=== PATIENT | female | born 1960 | race Caucasian/White ===

== ENCOUNTER 2017-12-20 18:29 | Emergency (ER) | payer MEDICAID ==
[~2017-12-20] VITALS: Ht 167.6 cm; Wt 89.5 kg
[~2017-12-20 18:29] MED LIST: BAC10T PO; COMIN IH; DEXL30CA3 PO; EFF25T PO; FURO-150 PO; LORA10TA2 PO; MELO-82 PO; METF500T4 PO; MONT10TA21 PO; MOT200T PO; TIOT18CA7 IH; TRAM50TA2 PO
[2017-12-20] MEDS ORDERED: ondansetron/PF 4mg/2ml inj IV ONE (18:50)
[2017-12-20] MEDS ORDERED: morphine 2 MG/ML inj. syringe IV ONE (18:50)
[2017-12-20] MEDS ORDERED: morphine 4 MG/ML inj SYRINge IV ONE ×2 (18:55→19:25)
[2017-12-20 19:13] LABS: BASOPHILS % (AUTO) 0.3 % (0-1); EOSINOPHILS # (AUTO) 0.2 X10'3 (0-0.9); EOSINOPHILS % (AUTO) 2.2 % (0-6); HEMATOCRIT 35.2 % (35.0-45.0); HEMOGLOBIN 11.6 g/dl (12.0-16.0); LYMPHOCYTES # (AUTO) 1.1 X10'3 (1.1-4.8); LYMPHOCYTES % (AUTO) 14.5 % (21-51); MEAN CORPUSCULAR HEMOGLOBIN 28.3 PG (27.0-31.0); MEAN CORPUSCULAR HGB CONC 33.1 % (33.0-36.5); MEAN CORPUSCULAR VOLUME 85.6 FL (78-98); MEAN PLATELET VOLUME 7.7 FL (7.4-10.4); MONOCYTES # (AUTO) 0.4 X10'3 (0-0.9); MONOCYTES % (AUTO) 5.8 % (2-12); NEUTROPHILS # (AUTO) 5.7 X10'3 (1.8-7.7); NEUTROPHILS % (AUTO) 77.2 % (42-75); PLATELET COUNT 307 X10'3 (140-440); RED BLOOD COUNT 4.11 X10'6 (4.20-5.60); WHITE BLOOD COUNT 7.4 X10'3 (4.5-11.0)
[2017-12-20 19:24] LABS: INR 0.9 INR; PARTIAL THROMBOPLASTIN TIME 29 SECONDS (22-32); PROTHROMBIN TIME 9.8 SECONDS (9.0-12.0)
[2017-12-20 19:29] LABS: ALANINE AMINOTRANSFERASE 25 U/L (12-78); ALBUMIN 3.7 G/DL (3.4-5.0); ALKALINE PHOSPHATASE 118 IU/L (46-116); ANION GAP 10 (8-16); ASPARTATE AMINO TRANSFERASE 17 U/L (10-37); BILIRUBIN,TOTAL 0.3 MG/DL (0.1-1.0); BLOOD UREA NITROGEN 13 MG/DL (7-18); BUN/CREATININE RATIO 14.9 (6.6-38.0); CALCIUM 8.8 MG/DL (8.5-10.1); CHLORIDE 106 MMOL/L (99-107); CREATININE 0.87 MG/DL (0.40-0.90); GLUCOSE 153 MG/DL (70-104); POTASSIUM 4.2 MMOL/L (3.5-5.1); SODIUM 144 MMOL/L (135-145); TOTAL PROTEIN 7.3 G/DL (6.4-8.2); eGFR 67 ML/MIN
[2017-12-20] MEDS ORDERED: METF500T PO (20:45)
[2017-12-20] MEDS ORDERED: IBUP-1984 PO (20:45)
[2017-12-20 21:07] VITALS: BP 110/65
== END 2017-12-20 21:09 | disposition home or self-care (01) ==
LOC: MERGE 18:30 → ER 18:30
DX: M25.551 Pain in right hip (principal); Z88.8 Allergy status to other drugs, medicaments and biological substances; Z79.84 Long term (current) use of oral hypoglycemic drugs; Z79.899 Other long term (current) drug therapy
CPT/HCPCS: 36415; 71045; 72170; 73502; 73700; 80053; 85025; 85610; 85730; 96374; 96375; 99285; J2270; J2405

== ENCOUNTER 2019-02-05 11:51 | Emergency (ER) | payer MEDICAID ==
[~2019-02-05] VITALS: Ht 165.1 cm; Wt 92.3 kg
[~2019-02-05 11:51] MED LIST changes: +IBUP-1984 PO; +METF-436 PO; +METF500T PO; -METF500T4 PO
[2019-02-05 11:57] VITALS: BP 120/68
[2019-02-05] MEDS ORDERED: NAPR-56 PO (12:35)
[2019-02-05] MEDS ORDERED: TRAM50TA2 PO (12:35)
== END 2019-02-05 13:28 | disposition home or self-care (01) ==
LOC: ER 11:52
DX: S62.613A Displaced fracture of proximal phalanx of left middle finger, initial encounter for closed fracture (principal); Z88.8 Allergy status to other drugs, medicaments and biological substances; Z88.1 Allergy status to other antibiotic agents; Z79.84 Long term (current) use of oral hypoglycemic drugs; Z79.899 Other long term (current) drug therapy; W18.39XA Other fall on same level, initial encounter; Y93.89 Activity, other specified; Y92.89 Other specified places as the place of occurrence of the external cause; Y99.8 Other external cause status
CPT/HCPCS: 29130; 73130; 99283

== ENCOUNTER 2021-08-28 16:26 | Inpatient (IN) | payer MEDICAID ==
[~2021-08-28] VITALS: Ht 167.6 cm; Wt 101.8 kg
[~2021-08-28 16:26] MED LIST changes: +ARIP5TAB14 PO; -BAC10T PO; -DEXL30CA3 PO; -EFF25T PO; -FURO-150 PO; +GABA-530 PO; +GLIP10TA11 PO; +HYDR50TA65 PO; -LORA10TA2 PO; -MELO-82 PO; -METF-436 PO; +METF-900 PO; -METF500T PO; -MONT10TA21 PO; -MOT200T PO; +OXYB5TAB16 PO; +SERT50TA PO; -TIOT18CA7 IH; -TRAM50TA2 PO; +UMEC1DIS INH
[2021-08-28] MEDS ORDERED: heparin 10,000 units/1 ML INJ IV ONE ×2 (19:15→19:21)
--- NOTE | 2021-08-28 19:45 | NUR ---
PT ROOMED. ASSUMED CARE OF PT. IV IS BEING PLACED. PT ALSO INCONTINENT OF STOOL.
[2021-08-28 20:01] LABS: BASOPHILS % (AUTO) 0.6 % (0-1); EOSINOPHILS # (AUTO) 0.1 X10'3 (0-0.9); EOSINOPHILS % (AUTO) 1.1 % (0-6); HEMATOCRIT 32.8 % (35.0-45.0); HEMOGLOBIN 11.1 g/dl (12.0-16.0); LYMPHOCYTES # (AUTO) 1.2 X10'3 (1.1-4.8); LYMPHOCYTES % (AUTO) 16.9 % (21-51); MEAN CORPUSCULAR HEMOGLOBIN 27.2 PG (27.0-31.0); MEAN CORPUSCULAR HGB CONC 33.8 g/dL (33.0-36.5); MEAN CORPUSCULAR VOLUME 80.3 FL (78-98); MEAN PLATELET VOLUME 7.6 FL (7.4-10.4); MONOCYTES # (AUTO) 0.4 X10'3 (0-0.9); NEUTROPHILS # (AUTO) 5.4 X10'3 (1.8-7.7); NEUTROPHILS % (AUTO) 75.4 % (42-75); PLATELET COUNT 259 X10'3 (140-440); RED BLOOD COUNT 4.09 X10'6 (4.20-5.60); WHITE BLOOD COUNT 7.2 X10'3 (4.5-11.0)
[2021-08-28 20:08] LABS: ALBUMIN 3.3 G/DL (3.4-5.0); ANION GAP 6 (8-16); BLOOD UREA NITROGEN 16 MG/DL (7-18); BUN/CREATININE RATIO 15.7 (6.6-38.0); CALCIUM 8.6 MG/DL (8.5-10.1); CHLORIDE 106 MMOL/L (99-107); CREATININE 1.02 MG/DL (0.40-0.90); GLUCOSE 126 MG/DL (70-104); POTASSIUM 4.2 MMOL/L (3.5-5.1); SODIUM 143 MMOL/L (135-145); TOTAL CARBON DIOXIDE 31.1 MMOL/L (24-32); eGFR 55 ML/MIN
[2021-08-28 20:10] LABS: PARTIAL THROMBOPLASTIN TIME 25 SECONDS (22-32)
[2021-08-28] MEDS: heparin 25,000 UNIT/250ml bag 250 ML IV SCH (20:29)
[2021-08-28] MEDS ORDERED: iohexol 300mg/ml 100ml inj. ONE (20:33)
--- NOTE | 2021-08-28 20:37 | NUR ---
PT TO CT
[2021-08-28] MEDS: MESSAGE TO NURSING PO SCH (20:54)
[2021-08-28] MEDS ORDERED: temazepam 15mg capsule PO PRN (21:00)
[2021-08-28] MEDS ORDERED: ondansetron/PF 4mg/2ml inj IV PRN (21:45)
[2021-08-28] MEDS ORDERED: HYDROcodone/acetaminophen 5mg/325mg tablet PO PRN (21:45)
[2021-08-28] MEDS ORDERED: morphine 2 MG/ML inj. syringe IV PRN ×2 (21:45)
[2021-08-28] MEDS ORDERED: acetaminophen 325mg tablet PO PRN ×2 (21:45)
[2021-08-28] MEDS ORDERED: acetaminophen 650mg rectal suppository RC PRN (21:45)
[2021-08-28] MEDS ORDERED: ondansetron 4mg rapidly disintigrating tab PO PRN (21:45)
[2021-08-28] MEDS ORDERED: diphenhydrAMINE 25mg capsule PO PRN (21:45)
[2021-08-28] MEDS ORDERED: HYDROmorphone inj. 0.5 MG/0.5 ML DISP.SYRIN IV PRN (21:45)
[2021-08-28] MEDS ORDERED: diphenhydrAMINE 50 mg/ml inj IV PRN (21:45)
[2021-08-28] MEDS ORDERED: bisacodyl 10mg suppository rectal RC PRN (21:45)
[2021-08-28] MEDS ORDERED: magnesium hydroxide 30ml (MOM) UD suspension PO PRN (21:45)
[2021-08-28] MEDS ORDERED: mag hydrox/Alum hydrox/simeth 30ml oral suspension PO PRN (21:45)
[2021-08-28] MEDS ORDERED: HYDROcodone/acetaminophen 10/325mg tab PO PRN (21:45)
[2021-08-28] MEDS ORDERED: dextrose 50%-water 50ml dispensing syringe IV PRN ×2 (21:50)
[2021-08-28] MEDS ORDERED: insulin Lispro (HumaLOG) vial - multi-dose SQ SCH (21:50)
[2021-08-28] MEDS ORDERED: MESSAGE TO PHARMACY PO ONE (21:50)
[2021-08-28] MEDS ORDERED: glucagon, human recombinant 1mg kit SUBCUT PRN (21:50)
[2021-08-28] MEDS ORDERED: dextrose ORAL solution 15 GM/59 ML bottle PO PRN ×2 (21:50)
[2021-08-28] MEDS: normal saline 1000ml 1,000 ML IV SCH (21:55)
[2021-08-28 22:24] LABS: HEMOGLOBIN A1C 7.8 % (4.5-6.2)
[2021-08-28 22:30] LABS: CREATINE KINASE 32 U/L (26-192); ETHANOL < 0.010 GM/DL (0.0-0.010); LIPASE < 50 U/L (73-393); PHOSPHORUS 3.4 MG/DL (2.3-4.5)
[2021-08-28] MEDS ORDERED: METF-436 PO (23:01)
[2021-08-29 02:44] LABS: BASOPHILS % (AUTO) 0.7 % (0-1); EOSINOPHILS # (AUTO) 0.1 X10'3 (0-0.9); EOSINOPHILS % (AUTO) 2.1 % (0-6); HEMATOCRIT 30.6 % (35.0-45.0); LYMPHOCYTES # (AUTO) 1.4 X10'3 (1.1-4.8); LYMPHOCYTES % (AUTO) 24.3 % (21-51); MEAN CORPUSCULAR HEMOGLOBIN 26.4 PG (27.0-31.0); MEAN CORPUSCULAR HGB CONC 32.8 g/dL (33.0-36.5); MEAN CORPUSCULAR VOLUME 80.6 FL (78-98); MEAN PLATELET VOLUME 7.7 FL (7.4-10.4); MONOCYTES # (AUTO) 0.4 X10'3 (0-0.9); MONOCYTES % (AUTO) 6.8 % (2-12); NEUTROPHILS # (AUTO) 3.8 X10'3 (1.8-7.7); NEUTROPHILS % (AUTO) 66.1 % (42-75); PLATELET COUNT 227 X10'3 (140-440); RED CELL DISTRIBUTION WIDTH 17.2 % (11.5-14.5); WHITE BLOOD COUNT 5.8 X10'3 (4.5-11.0)
[2021-08-29 02:57] LABS: CLARITY,URINE CLOUDY (Clear); COLOR,URINE YELLOW (Yellow); GLUCOSE, URINE NEGATIVE (Neg); KETONES,URINE NEGATIVE (Neg); PROTEIN,URINE NEGATIVE (Neg); UA COLLECTION TYPE NON-SPECIFIED
[2021-08-29 02:58] LABS: LEUKOCYTE ESTERASE ,URINE TRACE (Neg); NITRITES, URINE POSITIVE (Neg); OCCULT BLOOD,URINE NEGATIVE (Neg); UROBILINOGEN,URINE 0.2 E.U/dL (0.2-1.0)
[2021-08-29 03:01] LABS: ALANINE AMINOTRANSFERASE 24 U/L (12-78); ALBUMIN 2.9 G/DL (3.4-5.0); ALBUMIN/GLOBULIN RATIO 0.8 (1.1-1.5); ALKALINE PHOSPHATASE 85 IU/L (46-116); ANION GAP 7 (8-16); ASPARTATE AMINO TRANSFERASE 17 U/L (10-37); BILIRUBIN,TOTAL 0.5 MG/DL (0.1-1.0); BLOOD UREA NITROGEN 14 MG/DL (7-18); BUN/CREATININE RATIO 15.9 (6.6-38.0); CHLORIDE 107 MMOL/L (99-107); CHOL/HDL RATIO 3.7 (0.00-4.99); CHOLESTEROL 163 MG/DL (0-200); CREATININE 0.88 MG/DL (0.40-0.90); GLUCOSE 126 MG/DL (70-104); HDL CHOLESTEROL 44 MG/DL (35-60); LDL CHOLESTEROL 108 MG/DL (50-100); POTASSIUM 4.1 MMOL/L (3.5-5.1); SODIUM 142 MMOL/L (135-145); TOTAL CARBON DIOXIDE 27.9 MMOL/L (24-32); TOTAL PROTEIN 6.6 G/DL (6.4-8.2); TRIGLYCERIDES 53 MG/DL (20-135); eGFR 65 ML/MIN
[2021-08-29 03:07] LABS: SQUAMOUS EPITHELIAL CELL,UR MODERATE /LPF (FEW)
[2021-08-29 03:13] LABS: BACTERIA,URINE 4+ /HPF (Neg); RBC,URINE 0-2 /HPF (0-2); YEAST MODERATE /HPF (NEGATIVE)
[2021-08-29 03:16] LABS: URINE AMPHETAMINE SCREEN NEGATIVE (Neg); URINE BARBITUATE SCREEN NEGATIVE (Neg); URINE BENZODIAZEPINES SCREEN NEGATIVE (Neg); URINE CANNABINOID SCREEN NEGATIVE (Neg); URINE COCAINE SCREEN NEGATIVE (Neg); URINE METHADONE SCREEN NEGATIVE (Neg); URINE OPIATE SCREEN NEGATIVE (Neg); URINE PHENCYCLIDINE SCREEN NEGATIVE (Neg)
[2021-08-29] MEDS: docusate sod 100mg capsule PO SCH ×2 (08:00→20:02)
[2021-08-29] MEDS: MESSAGE TO NURSING PO SCH (10:00)
[2021-08-29] MEDS: pantoprazole 40mg Tablet.DR PO SCH (10:21)
[2021-08-29] MEDS: nitrofuran/nitrofuran macrocrysal 100 MG capsule PO SCH ×2 (10:21→20:02)
[2021-08-29] MEDS: normal saline 1000ml 1,000 ML IV SCH ×3 (10:22→22:00)
[2021-08-29] MEDS: heparin 25,000 UNIT/250ml bag 250 ML IV SCH ×2 (11:22→12:44)
--- NOTE | 2021-08-29 12:36 | NUR ---
Patient in room ED 8. I have received report from Rose YUSUF and had the opportunity to ask questions and assume patient care.
[2021-08-29] MEDS: heparin 10,000 units/1 ML INJ IV PRN (12:43)
[2021-08-29 13:00] VITALS: BP 121/63
[2021-08-29] MEDS ORDERED: ipratropium/albuterol 3ml nebule NEB PRN (13:00)
[2021-08-29] MEDS ORDERED: fentaNYL/PF 50MCG/1 ML 2ML syringe ONE ×4 (13:40→16:56)
[2021-08-29] MEDS ORDERED: LIDOcaine 1%/PF 5ML 10 MG/ML VIAL ONE (13:40)
[2021-08-29] MEDS ORDERED: heparin 1,000 UNITS/NS 500ml 500 ML ONE ×2 (13:40→17:03)
[2021-08-29] MEDS ORDERED: iohexol 300mg/ml 100ml inj. ONE (13:40)
[2021-08-29] MEDS ORDERED: midazolam 1 mg/ML 2ml injection ONE ×4 (13:40→16:56)
[2021-08-29] MEDS ORDERED: pneumococcal 23-VAL P-sac vacc 25 mcg/0.5ml vial IMVAC ONE (14:15)
[2021-08-29] MEDS ORDERED: diphenhydrAMINE 50 mg/ml inj ONE (14:28)
[2021-08-29] MEDS ORDERED: ALBUTEROL INHALER 1 PUFF/90 MCG INHALER IH PRN (16:00)
[2021-08-29] MEDS: gabapentin 300mg capsule PO SCH (16:00)
--- NOTE | 2021-08-29 16:33 | NUR ---
DM consult: Pt with T2DM, fairly well controlled with A1c 7.8%. Per EMR pt in IR. Will f/u for DM education once appropriate. Addendum: 08/29/21 at [address] Amended: Links added.
[2021-08-29] MEDS ORDERED: heparin 1,000unit/ml 10ml vial 10 ML ONE (16:51)
[2021-08-29 18:40] LABS: PARTIAL THROMBOPLASTIN TIME > 139 SECONDS (22-32)
--- NOTE | 2021-08-29 18:57 | NUR ---
PAGER ID: [phone] MESSAGE: Oliva [phone] - re: Melissa Jordan. PTT is greater than 139. Protocol is to stop infusion for 2 hours.
--- NOTE | 2021-08-29 19:03 | NUR ---
Received call from the lab that PTT is greater than 139. Protocol is to stop heparin drip for 2 hours and then decrease by 3 units/kg/hr. Heparin drip in currently not infusing. Paged Dr. Hess with no response. Reported to allyn Garrido.
--- NOTE | 2021-08-29 19:05 | NUR ---
Problems reprioritized. Patient report given, questions answered & plan of care reviewed with Radhika YUSUF.
--- NOTE | 2021-08-29 19:55 | NUR ---
I called Dr. Coleman regarding elevated ptt from 1837. the ptt was >139 and heparin has been off since around 1800 per the night nurse who gave me the information. I already ordered a repeat ptt at 2030 and will follow protocol. Dr. Coleman called back and said to follow the heparin protocol.
[2021-08-29] MEDS: sertraline 50mg tablet PO SCH (20:02)
[2021-08-29] MEDS: oxybutynin 5mg tablet PO SCH (20:02)
[2021-08-29] MEDS: insulin glargine (Lantus) pen - multi-dose SQ SCH (21:00)
--- NOTE | 2021-08-29 21:11 | NUR ---
I had paged Dr. Jacinto regarding day shift saying that patient did not need to be on the covid unit since she was covid + about 3 weeks ago. I had called nursing supervisor net making and she said that there was no place to transfer her today. Dr. Jacinto called me back and he said to keep patient on our floor tonight on tele monitor and he would re eval the patient in the am and write transfer orders if she was stable to the surgical unit on Wednesday himself.
[2021-08-29 22:00] VITALS: BP 126/55
[2021-08-30] MEDS: gabapentin 300mg capsule PO SCH ×3 (01:11→15:27)
[2021-08-30] MEDS: normal saline 1000ml 1,000 ML IV SCH ×6 (01:12→20:40)
[2021-08-30] MEDS: heparin 25,000 UNIT/250ml bag 250 ML IV SCH ×2 (02:33→15:38)
[2021-08-30 06:00] VITALS: BP 111/59
--- NOTE | 2021-08-30 06:39 | NUR ---
Problems reprioritized. Patient report given, questions answered & plan of care reviewed with PARAMJIT Henry.
[2021-08-30] MEDS: (Umeclidinium Brm/Vilanterol Tr (Anoro Ellipta 62.5-25 Mcg INH) 1 PUFF) PO SCH (08:00)
[2021-08-30] MEDS ORDERED: aripiprazole 5mg tablet PO SCH ×2 (08:00→09:11)
[2021-08-30] MEDS: hydrOXYzine 25 MG tablet PO SCH (08:28)
[2021-08-30] MEDS: docusate sod 100mg capsule PO SCH ×2 (08:28→20:28)
[2021-08-30] MEDS: oxybutynin 5mg tablet PO SCH ×2 (08:28→20:28)
[2021-08-30] MEDS: pantoprazole 40mg Tablet.DR PO SCH (08:28)
[2021-08-30 08:35] LABS: BASOPHILS % (AUTO) 0.3 % (0-1); EOSINOPHILS # (AUTO) 0.1 X10'3 (0-0.9); EOSINOPHILS % (AUTO) 1.7 % (0-6); HEMATOCRIT 28.7 % (35.0-45.0); HEMOGLOBIN 9.6 g/dl (12.0-16.0); LYMPHOCYTES # (AUTO) 0.9 X10'3 (1.1-4.8); LYMPHOCYTES % (AUTO) 16.7 % (21-51); MEAN CORPUSCULAR HEMOGLOBIN 26.8 PG (27.0-31.0); MEAN CORPUSCULAR HGB CONC 33.3 g/dL (33.0-36.5); MEAN CORPUSCULAR VOLUME 80.6 FL (78-98); MEAN PLATELET VOLUME 8.1 FL (7.4-10.4); MONOCYTES # (AUTO) 0.4 X10'3 (0-0.9); MONOCYTES % (AUTO) 6.5 % (2-12); NEUTROPHILS # (AUTO) 4.2 X10'3 (1.8-7.7); NEUTROPHILS % (AUTO) 74.8 % (42-75); PLATELET COUNT 236 X10'3 (140-440); RED BLOOD COUNT 3.56 X10'6 (4.20-5.60); RED CELL DISTRIBUTION WIDTH 17.3 % (11.5-14.5); WHITE BLOOD COUNT 5.7 X10'3 (4.5-11.0)
[2021-08-30 08:52] LABS: ALANINE AMINOTRANSFERASE 21 U/L (12-78); ALBUMIN 2.8 G/DL (3.4-5.0); ALBUMIN/GLOBULIN RATIO 0.9 (1.1-1.5); ALKALINE PHOSPHATASE 80 IU/L (46-116); ANION GAP 3 (8-16); ASPARTATE AMINO TRANSFERASE 20 U/L (10-37); BILIRUBIN,TOTAL 0.4 MG/DL (0.1-1.0); BLOOD UREA NITROGEN 10 MG/DL (7-18); BUN/CREATININE RATIO 10.9 (6.6-38.0); CALCIUM 7.9 MG/DL (8.5-10.1); CHLORIDE 110 MMOL/L (99-107); CREATININE 0.92 MG/DL (0.40-0.90); GLUCOSE 153 MG/DL (70-104); POTASSIUM 4.1 MMOL/L (3.5-5.1); SODIUM 143 MMOL/L (135-145); TOTAL CARBON DIOXIDE 29.6 MMOL/L (24-32); eGFR 62 ML/MIN
[2021-08-30] MEDS: CefTRIAXone/D5W-Rocephin 1gm 50 ML IV SCH (09:36)
[2021-08-30] MEDS: nitrofuran/nitrofuran macrocrysal 100 MG capsule PO SCH ×2 (09:36→20:39)
[2021-08-30] MEDS: MESSAGE TO NURSING PO SCH (10:00)
[2021-08-30 14:00] VITALS: BP 121/66
--- NOTE | 2021-08-30 16:00 | NUR ---
IR RN removed Flowstasis device/suture from left posterior knee per IR MD direction. Site is clean dry and intact. No signs of bleeding or hematoma. Primary RN aware.
--- NOTE | 2021-08-30 17:20 | NUR ---
PAGED DR QUINTANA RE: PAGER ID: [phone] MESSAGE: SHALINI SEGUNDO. SLIGHT TEMP 100.7, TYLENOL GIVEN. PT MOVING TO [facility] RM [id number]. NESHA [phone]
--- NOTE | 2021-08-30 17:46 | NUR ---
Problems reprioritized. Patient report given, questions answered & plan of care reviewed with YESSENIA YUSUF.
[2021-08-30 18:00] VITALS: BP 112/56
--- NOTE | 2021-08-30 19:03 | NUR ---
Problems reprioritized. Patient report given, questions answered & plan of care reviewed with Dahiana YUSUF.
[2021-08-30] MEDS: lactobacillus rhamnosus 10,000 MMU CELLS/CAPSULE PO SCH (20:28)
[2021-08-30] MEDS: sertraline 50mg tablet PO SCH (20:29)
[2021-08-30] MEDS: insulin glargine (Lantus) pen - multi-dose SQ SCH (20:48)
[2021-08-30 22:00] VITALS: BP 97/54
[2021-08-31] MEDS: heparin 25,000 UNIT/250ml bag 250 ML IV SCH ×2 (01:00→08:28)
[2021-08-31] MEDS: normal saline 1000ml 1,000 ML IV SCH ×4 (01:28→09:45)
[2021-08-31] MEDS: heparin 10,000 units/1 ML INJ IV PRN (01:34)
[2021-08-31 02:00] VITALS: BP 119/53
[2021-08-31 06:00] VITALS: BP 104/58
--- NOTE | 2021-08-31 06:32 | NUR ---
Problems reprioritized. Patient report given, questions answered & plan of care reviewed with Janelle YUSUF.
--- NOTE | 2021-08-31 06:34 | NUR ---
Patient in room PCU 3028. I have received report from RAUL YUSUF and had the opportunity to ask questions and assume patient care.
[2021-08-31] MEDS: CefTRIAXone/D5W-Rocephin 1gm 50 ML IV SCH (07:30)
[2021-08-31] MEDS: lactobacillus rhamnosus 10,000 MMU CELLS/CAPSULE PO SCH (07:30)
[2021-08-31] MEDS: gabapentin 300mg capsule PO SCH ×2 (07:30)
[2021-08-31] MEDS: docusate sod 100mg capsule PO SCH (07:30)
[2021-08-31] MEDS: oxybutynin 5mg tablet PO SCH (07:31)
[2021-08-31] MEDS: pantoprazole 40mg Tablet.DR PO SCH (07:31)
[2021-08-31] MEDS: hydrOXYzine 25 MG tablet PO SCH (07:31)
[2021-08-31] MEDS: nitrofuran/nitrofuran macrocrysal 100 MG capsule PO SCH (07:31)
[2021-08-31] MEDS: (Umeclidinium Brm/Vilanterol Tr (Anoro Ellipta 62.5-25 Mcg INH) 1 PUFF) PO SCH (07:32)
[2021-08-31 07:56] LABS: BASOPHILS % (AUTO) 0.3 % (0-1); EOSINOPHILS # (AUTO) 0.1 X10'3 (0-0.9); EOSINOPHILS % (AUTO) 2.8 % (0-6); HEMATOCRIT 26.4 % (35.0-45.0); HEMOGLOBIN 8.8 g/dl (12.0-16.0); LYMPHOCYTES # (AUTO) 0.8 X10'3 (1.1-4.8); LYMPHOCYTES % (AUTO) 15.4 % (21-51); MEAN CORPUSCULAR HEMOGLOBIN 26.9 PG (27.0-31.0); MEAN CORPUSCULAR HGB CONC 33.3 g/dL (33.0-36.5); MEAN CORPUSCULAR VOLUME 80.8 FL (78-98); MONOCYTES # (AUTO) 0.4 X10'3 (0-0.9); MONOCYTES % (AUTO) 7.6 % (2-12); NEUTROPHILS # (AUTO) 3.8 X10'3 (1.8-7.7); NEUTROPHILS % (AUTO) 73.9 % (42-75); PLATELET COUNT 220 X10'3 (140-440); RED BLOOD COUNT 3.27 X10'6 (4.20-5.60); RED CELL DISTRIBUTION WIDTH 17.5 % (11.5-14.5); WHITE BLOOD COUNT 5.2 X10'3 (4.5-11.0)
[2021-08-31 08:04] LABS: ALANINE AMINOTRANSFERASE 17 U/L (12-78); ALBUMIN 2.5 G/DL (3.4-5.0); ALBUMIN/GLOBULIN RATIO 0.8 (1.1-1.5); ANION GAP 7 (8-16); ASPARTATE AMINO TRANSFERASE 20 U/L (10-37); BILIRUBIN,TOTAL 0.3 MG/DL (0.1-1.0); BLOOD UREA NITROGEN 11 MG/DL (7-18); BUN/CREATININE RATIO 13.1 (6.6-38.0); CALCIUM 7.6 MG/DL (8.5-10.1); CHLORIDE 112 MMOL/L (99-107); CREATININE 0.84 MG/DL (0.40-0.90); GLUCOSE 167 MG/DL (70-104); POTASSIUM 3.8 MMOL/L (3.5-5.1); SODIUM 146 MMOL/L (135-145); TOTAL CARBON DIOXIDE 27.4 MMOL/L (24-32); TOTAL PROTEIN 5.6 G/DL (6.4-8.2); eGFR 69 ML/MIN
[2021-08-31 08:05] LABS: ALKALINE PHOSPHATASE 81 IU/L (46-116)
[2021-08-31 11:00] VITALS: BP 130/70
[2021-08-31] MEDS ORDERED: LEVO500T90 PO (11:55)
[2021-08-31] MEDS ORDERED: APIX5TAB3 PO ×2 (11:55)
[2021-08-31] MEDS ORDERED: HYDR-3972 PO (11:55)
[2021-08-31] MEDS ORDERED: ENOX100S3 SQ (12:01)
--- NOTE | 2021-08-31 13:36 | NUR ---
pt was stable for discharge, iv was dc and intact. all discharge info was gone over with pt with no questions, all belongings taken home with pt, pt was wheeled down to lobby in a wheelchair and left in a private vehicle with family.
--- NOTE | 2021-08-31 13:37 | NUR ---
Initial: Pt admitted w/ increased swelling and pain of LLE and underwent thrombectomy, venoplasty and stenting per EMR. Pt currently on CCHO diet eating 100% of meals meeting needs. LBM 08/29 receiving routine colace. Pt declined verbal DM ed but accepted written education w/ RD contact info. No nutrition intervention implemented at this time, will continue to monitor. Recs: 1. Continue CCHO diet as tolerated 2. Bowel care per rx 3. Weekly wts Addendum: 08/31/21 at [address] Amended: Links added.
== END 2021-08-31 13:42 | disposition home or self-care (01) | DRG 169 ==
LOC: ER 16:27 → ED HOLD 21:46 → ORTHO 4S 08-29 13:00 → PCU 3S 08-30 18:02
PROVIDERS: ADMIT Family Medicine; ATTEND Family Medicine
PROC: BW211ZZ Computerized Tomography (CT Scan) of Abdomen and Pelvis using Low Osmolar Contrast (ICD-10-PCS; principal; 2021-08-28)
PROC: 06CD3ZZ Extirpation of Matter from Left Common Iliac Vein, Percutaneous Approach (ICD-10-PCS; 2021-08-29)
PROC: 06CG3ZZ Extirpation of Matter from Left External Iliac Vein, Percutaneous Approach (ICD-10-PCS; 2021-08-29)
PROC: 06CN3ZZ Extirpation of Matter from Left Femoral Vein, Percutaneous Approach (ICD-10-PCS; 2021-08-29)
PROC: 067D3ZZ Dilation of Left Common Iliac Vein, Percutaneous Approach (ICD-10-PCS; 2021-08-29)
PROC: B51C1ZA Fluoroscopy of Left Lower Extremity Veins using Low Osmolar Contrast, Guidance (ICD-10-PCS; 2021-08-29)
DX: I82.422 Acute embolism and thrombosis of left iliac vein (principal); N17.0 Acute kidney failure with tubular necrosis; U07.1 COVID-19; I82.412 Acute embolism and thrombosis of left femoral vein; E11.9 Type 2 diabetes mellitus without complications; J44.9 Chronic obstructive pulmonary disease, unspecified; N39.0 Urinary tract infection, site not specified; I87.1 Compression of vein; F41.9 Anxiety disorder, unspecified; E78.5 Hyperlipidemia, unspecified; F32.A Depression, unspecified; Z79.82 Long term (current) use of aspirin; Z59.00 Homelessness unspecified; Z88.1 Allergy status to other antibiotic agents; Z88.8 Allergy status to other drugs, medicaments and biological substances; Z79.899 Other long term (current) drug therapy
CPT/HCPCS: 36005; 36415; 37187; 37248; 71045; 74177; 75820; 76937; 80048; 80053; 80061; 80305; 80320; 81001; 82550; 82948; 83036; 83690; 83735; 83880; 84100; 84443; 85025; 85347; 85610; 85730; 87077; 87081; 87088; 87186; 87635; 93971; 99152; 99153; 99285; C1725; C1757; C1769; C1876; C1887; C1894; G0378; J0696; J1200; J1644; J1815; J2250; J3010; J7030; Q0177; Q9967

== ENCOUNTER → 2022-01-05 | Emergency (ER) | payer MEDICAID ==
[~2022-01-05] VITALS: Ht 167.6 cm; Wt 100.0 kg
[~2022-01-05] MED LIST changes: +ALBU18HF2 INH; +APIX5TAB3 PO; +ENOX100S3 SQ; +HYDR-3972 PO; -IBUP-1984 PO; +METF-436 PO; -METF-900 PO; +PRED20TA PO; +dexamethasone 4mg tablet PO ONE; +ipratropium/albuterol 3ml nebule NEB ONE
[2022-01-05 20:46] LABS: BASOPHILS % (AUTO) 0.4 % (0-1); EOSINOPHILS # (AUTO) 0.1 X10'3 (0-0.9); EOSINOPHILS % (AUTO) 0.9 % (0-6); HEMATOCRIT 37.6 % (35.0-45.0); HEMOGLOBIN 12.1 g/dl (12.0-16.0); LYMPHOCYTES # (AUTO) 1.2 X10'3 (1.1-4.8); LYMPHOCYTES % (AUTO) 16.9 % (21-51); MEAN CORPUSCULAR HEMOGLOBIN 25.8 PG (27.0-31.0); MEAN CORPUSCULAR HGB CONC 32.2 g/dL (33.0-36.5); MEAN CORPUSCULAR VOLUME 80.1 FL (78-98); MEAN PLATELET VOLUME 7.5 FL (7.4-10.4); MONOCYTES # (AUTO) 0.4 X10'3 (0-0.9); MONOCYTES % (AUTO) 6.1 % (2-12); NEUTROPHILS # (AUTO) 5.5 X10'3 (1.8-7.7); NEUTROPHILS % (AUTO) 75.7 % (42-75); PLATELET COUNT 329 X10'3 (140-440); RED CELL DISTRIBUTION WIDTH 16.3 % (11.5-14.5); WHITE BLOOD COUNT 7.3 X10'3 (4.5-11.0)
[2022-01-05 21:01] LABS: ALANINE AMINOTRANSFERASE 19 U/L (12-78); ALBUMIN 3.6 G/DL (3.4-5.0); ALBUMIN/GLOBULIN RATIO 0.9 (1.1-1.5); ALKALINE PHOSPHATASE 126 IU/L (46-116); ANION GAP 11 (8-16); ASPARTATE AMINO TRANSFERASE 13 U/L (10-37); BILIRUBIN,TOTAL 0.3 MG/DL (0.1-1.0); BLOOD UREA NITROGEN 16 MG/DL (7-18); BUN/CREATININE RATIO 17.2 (6.6-38.0); CALCIUM 9.1 MG/DL (8.5-10.1); CHLORIDE 105 MMOL/L (99-107); CREATININE 0.93 MG/DL (0.40-0.90); GLUCOSE 221 MG/DL (70-104); POTASSIUM 4.4 MMOL/L (3.5-5.1); SODIUM 143 MMOL/L (135-145); TOTAL CARBON DIOXIDE 27.4 MMOL/L (24-32); TOTAL PROTEIN 7.4 G/DL (6.4-8.2); eGFR 61 ML/MIN
[2022-01-05 22:43] VITALS: BP 113/67
== END | disposition home or self-care (01) ==
LOC: ER 20:15
DX: J44.1 Chronic obstructive pulmonary disease with (acute) exacerbation (principal); E11.65 Type 2 diabetes mellitus with hyperglycemia; R07.89 Other chest pain; Z87.891 Personal history of nicotine dependence; Z86.718 Personal history of other venous thrombosis and embolism; Z88.1 Allergy status to other antibiotic agents; Z88.8 Allergy status to other drugs, medicaments and biological substances; Z79.899 Other long term (current) drug therapy
CPT/HCPCS: 36415; 71045; 80053; 83880; 84484; 85025; 93005; 94640; 94760; 99285

== ENCOUNTER 2022-03-09 16:03 | Emergency (ER) | payer MEDICAID ==
[~2022-03-09] VITALS: Ht 167.6 cm; Wt 100.0 kg
[~2022-03-09 16:03] MED LIST changes: -PRED20TA PO; -dexamethasone 4mg tablet PO ONE; -ipratropium/albuterol 3ml nebule NEB ONE
[2022-03-09] MEDS ORDERED: normal saline 1000ML IV soln IVB ONE (17:40)
[2022-03-09] MEDS ORDERED: ondansetron/PF 4mg/2ml inj IV ONE (17:40)
[2022-03-09 18:01] LABS: BASOPHILS % (AUTO) 0.1 % (0-1); EOSINOPHILS % (AUTO) 0.3 % (0-6); HEMATOCRIT 37.1 % (35.0-45.0); HEMOGLOBIN 12.2 g/dl (12.0-16.0); LYMPHOCYTES # (AUTO) 0.3 X10'3 (1.1-4.8); LYMPHOCYTES % (AUTO) 4.6 % (21-51); MEAN CORPUSCULAR HEMOGLOBIN 26.8 PG (27.0-31.0); MEAN CORPUSCULAR HGB CONC 32.8 g/dL (33.0-36.5); MEAN CORPUSCULAR VOLUME 81.8 FL (78-98); MEAN PLATELET VOLUME 7.5 FL (7.4-10.4); MONOCYTES # (AUTO) 0.4 X10'3 (0-0.9); MONOCYTES % (AUTO) 4.9 % (2-12); NEUTROPHILS # (AUTO) 6.6 X10'3 (1.8-7.7); NEUTROPHILS % (AUTO) 90.1 % (42-75); PLATELET COUNT 323 X10'3 (140-440); RED BLOOD COUNT 4.54 X10'6 (4.20-5.60); RED CELL DISTRIBUTION WIDTH 16.7 % (11.5-14.5); WHITE BLOOD COUNT 7.3 X10'3 (4.5-11.0)
[2022-03-09 18:14] LABS: ALANINE AMINOTRANSFERASE 19 U/L (12-78); ALBUMIN 3.6 G/DL (3.4-5.0); ALBUMIN/GLOBULIN RATIO 0.9 (1.1-1.5); ALKALINE PHOSPHATASE 107 IU/L (46-116); ANION GAP 9 (8-16); ASPARTATE AMINO TRANSFERASE 13 U/L (10-37); BILIRUBIN,TOTAL 0.9 MG/DL (0.1-1.0); BLOOD UREA NITROGEN 14 MG/DL (7-18); BUN/CREATININE RATIO 14.6 (6.6-38.0); CALCIUM 8.6 MG/DL (8.5-10.1); CHLORIDE 100 MMOL/L (99-107); CREATININE 0.96 MG/DL (0.40-0.90); ETHANOL < 0.010 GM/DL (0.0-0.010); GLUCOSE 172 MG/DL (70-104); POTASSIUM 4.3 MMOL/L (3.5-5.1); SODIUM 135 MMOL/L (135-145); TOTAL CARBON DIOXIDE 25.7 MMOL/L (24-32); TOTAL PROTEIN 7.6 G/DL (6.4-8.2); eGFR 59 ML/MIN
[2022-03-09] MEDS ORDERED: ONDA4TAB12 PO (18:25)
[2022-03-09] MEDS ORDERED: MYCOL30CR TP (18:25)
[2022-03-09 19:13] VITALS: BP 118/78
== END 2022-03-09 19:29 | disposition home or self-care (01) ==
LOC: ER 16:04
DX: T67.5XXA Heat exhaustion, unspecified, initial encounter (principal); R11.2 Nausea with vomiting, unspecified; R05.9 Cough, unspecified; E86.0 Dehydration; L30.9 Dermatitis, unspecified; G43.909 Migraine, unspecified, not intractable, without status migrainosus; E11.42 Type 2 diabetes mellitus with diabetic polyneuropathy; J43.9 Emphysema, unspecified; F17.200 Nicotine dependence, unspecified, uncomplicated; Z88.1 Allergy status to other antibiotic agents; Z88.8 Allergy status to other drugs, medicaments and biological substances; Z79.899 Other long term (current) drug therapy; X58.XXXA Exposure to other specified factors, initial encounter; Y93.89 Activity, other specified; Y92.89 Other specified places as the place of occurrence of the external cause; Y99.8 Other external cause status
CPT/HCPCS: 36415; 80053; 80320; 82948; 85025; 96361; 96374; 99284; J2405; J7030

== ENCOUNTER 2023-11-24 23:50 | Inpatient (IN) | payer MEDICAID ==
[~2023-11-24] VITALS: Ht 167.6 cm; Wt 79.5 kg
[~2023-11-24 23:50] MED LIST changes: +CEPH-585 PO; +NYST30CR35 TP; +ONDA4TAB12 PO; -OXYB5TAB16 PO; +OXYB5TAB21 PO
[2023-11-25 00:39] LABS: BASOPHILS % (AUTO) 0.1 % (0-1); EOSINOPHILS % (AUTO) 0.1 % (0-6); HEMATOCRIT 40.5 % (35.0-45.0); HEMOGLOBIN 13.8 g/dl (12.0-16.0); LYMPHOCYTES # (AUTO) 0.3 X10'3 (1.1-4.8); LYMPHOCYTES % (AUTO) 4.1 % (21-51); MEAN CORPUSCULAR VOLUME 85.5 FL (78-98); MEAN PLATELET VOLUME 8.1 FL (7.4-10.4); MONOCYTES # (AUTO) 0.7 X10'3 (0-0.9); MONOCYTES % (AUTO) 8.3 % (2-12); NEUTROPHILS # (AUTO) 7.1 X10'3 (1.8-7.7); NEUTROPHILS % (AUTO) 87.4 % (42-75); PLATELET COUNT 221 X10'3 (140-440); RED BLOOD COUNT 4.74 X10'6 (4.20-5.60); WHITE BLOOD COUNT 8.1 X10'3 (4.5-11.0)
[2023-11-25 00:50] LABS: ALBUMIN 3.8 G/DL (3.4-5.0); ANION GAP 14 (8-16); BLOOD UREA NITROGEN 18 MG/DL (7-18); BUN/CREATININE RATIO 17.6 (10.0-20.0); CALCIUM 8.9 MG/DL (8.5-10.1); CHLORIDE 103 MMOL/L (99-107); CREATININE 1.02 MG/DL (0.40-0.90); GLUCOSE 245 MG/DL (70-104); MAGNESIUM 1.8 MG/DL (1.5-2.4); POTASSIUM 3.5 MMOL/L (3.5-5.1); SODIUM 139 MMOL/L (135-145); TOTAL CARBON DIOXIDE 22.3 MMOL/L (24-32); eCRCL 53 ML/MIN; eGFR 55 ML/MIN
[2023-11-25] MEDS: normal saline 1000ML IV soln IV ONE (01:19)
[2023-11-25] MEDS: vancomycin/NS 1 GM ADD-VANTAGE 250 ML IV ONE (01:20)
[2023-11-25] MEDS: ondansetron/PF 4mg/2ml inj IV ONE (01:23)
[2023-11-25 01:24] LABS: ETHANOL < 10 MG/DL (<10)
[2023-11-25] MEDS: acetaminophen 1,000mg/100ml IV 100 ML IV ONE (01:35)
[2023-11-25] MEDS: CefTRIAXone/D5W-Rocephin 1gm 50 ML IV ONE (01:55)
[2023-11-25] MEDS: normal saline 1000ML IV soln IVB ONE (02:13)
[2023-11-25] MEDS: NORepinephrine 8mg/ 250ml NS 250 ML IV SCH (02:50)
[2023-11-25 02:55] LABS: PROTHROMBIN TIME 11.1 SECONDS (9.0-12.0)
[2023-11-25 04:10] LABS: BILIRUBIN,URINE NEGATIVE (Neg); CLARITY,URINE CLEAR (Clear); COLOR,URINE YELLOW (Yellow); GLUCOSE, URINE NEGATIVE (Neg); KETONES,URINE 15 mg/dl (Neg); LEUKOCYTE ESTERASE ,URINE NEGATIVE (Neg); NITRITES, URINE NEGATIVE (Neg); OCCULT BLOOD,URINE NEGATIVE (Neg); PROTEIN,URINE NEGATIVE (Neg); UROBILINOGEN,URINE 0.2 E.U/dL (0.2-1.0)
[2023-11-25 04:15] LABS: URINE AMPHETAMINE SCREEN NEGATIVE (Neg); URINE BARBITUATE SCREEN NEGATIVE (Neg); URINE BENZODIAZEPINES SCREEN NEGATIVE (Neg); URINE CANNABINOID SCREEN NEGATIVE (Neg); URINE COCAINE SCREEN NEGATIVE (Neg); URINE METHADONE SCREEN NEGATIVE (Neg); URINE OPIATE SCREEN NEGATIVE (Neg); URINE PHENCYCLIDINE SCREEN NEGATIVE (Neg)
[2023-11-25] MEDS: potassium Cl 40MEQ/1/2NS 520ml 520 ML IV ONE (04:26)
[2023-11-25 04:46] LABS: UA COLLECTION TYPE STRAIGHT CATH
[2023-11-25] MEDS: normal saline 1000ml 1,000 ML IVB ONE (06:05)
[2023-11-25] MEDS: acetaminophen 1,000mg/100ml IV 100 ML IV STA (08:21)
[2023-11-25] MEDS: metroNIDAZOLE-Flagyl 500mg/NS 100 ML IV SCH (09:13)
[2023-11-25] MEDS: ringers solution, lacted 1,000 ML IV ONE ×5 (09:20→12:48)
[2023-11-25] MEDS ORDERED: magnesium Cl slow-release 64mg tablet PO PRN (09:30)
[2023-11-25] MEDS ORDERED: magnesium 4gm in 100ml NS 100 ML IV PRN (09:30)
[2023-11-25] MEDS: ciprofloxacin/D5W 200mg/100mL 100 ML IV SCH (09:42)
[2023-11-25 11:39] LABS: C DIFF ANTIGEN NEGATIVE (NEGATIVE); C DIFF SPECIMEN=DIARRHEA? ACCEPTABLE; C DIFFICILE TOXINS A&B NEGATIVE (Neg)
[2023-11-25] MEDS: vancomycin 125mg/5ml ORAL solution 5ml UD oral syringe PO SCH (14:00)
[2023-11-25] MEDS: acetaminophen 325mg tablet PO PRN (17:42)
[2023-11-25] MEDS: heparin, porcine 5000 units/ml vial SQ SCH (21:42)
[2023-11-26] MEDS: ringers solution, lacted 1,000 ML IV SCH (00:08)
[2023-11-26 06:32] LABS: HEMOGLOBIN 12.1 g/dl (12.0-16.0)
[2023-11-26 06:36] LABS: BASOPHILS % (AUTO) 0.1 % (0-1); EOSINOPHILS % (AUTO) 0.2 % (0-6); LYMPHOCYTES # (AUTO) 0.6 X10'3 (1.1-4.8); LYMPHOCYTES % (AUTO) 9.1 % (21-51); MEAN CORPUSCULAR HEMOGLOBIN 28.5 PG (27.0-31.0); MEAN CORPUSCULAR HGB CONC 33.6 g/dL (33.0-36.5); MEAN CORPUSCULAR VOLUME 84.8 FL (78-98); MEAN PLATELET VOLUME 8.1 FL (7.4-10.4); MONOCYTES # (AUTO) 0.5 X10'3 (0-0.9); MONOCYTES % (AUTO) 8.3 % (2-12); NEUTROPHILS % (AUTO) 82.3 % (42-75); PLATELET COUNT 173 X10'3 (140-440); RED BLOOD COUNT 4.24 X10'6 (4.20-5.60); RED CELL DISTRIBUTION WIDTH 14.6 % (11.5-14.5); WHITE BLOOD COUNT 6.1 X10'3 (4.5-11.0)
[2023-11-26 06:49] LABS: ALANINE AMINOTRANSFERASE 19 U/L (12-78); ALBUMIN 2.2 G/DL (3.4-5.0); ALBUMIN/GLOBULIN RATIO 0.8 (1.1-1.5); ALKALINE PHOSPHATASE 58 IU/L (46-116); ANION GAP 8 (8-16); ASPARTATE AMINO TRANSFERASE 21 U/L (10-37); BILIRUBIN,TOTAL 0.5 MG/DL (0.1-1.0); BLOOD UREA NITROGEN 13 MG/DL (7-18); BUN/CREATININE RATIO 16.7 (10.0-20.0); CALCIUM 7.5 MG/DL (8.5-10.1); CHLORIDE 107 MMOL/L (99-107); CREATININE 0.78 MG/DL (0.40-0.90); GLUCOSE 163 MG/DL (70-104); POTASSIUM 3.2 MMOL/L (3.5-5.1); SODIUM 137 MMOL/L (135-145); TOTAL CARBON DIOXIDE 21.6 MMOL/L (24-32); eCRCL 69 ML/MIN; eGFR 75 ML/MIN
[2023-11-26 07:59] LABS: PLATELET ESTIMATE NORMAL; TOTAL CELLS COUNTED 100
[2023-11-26 08:00] LABS: TOXIC VACUOLATION FEW
[2023-11-26] MEDS: ciprofloxacin/D5W 200mg/100mL 100 ML IV SCH (08:00)
[2023-11-26 08:01] LABS: BURR CELLS FEW
[2023-11-26] MEDS: ondansetron/PF 4mg/2ml inj IV PRN (10:23)
[2023-11-26 11:00] VITALS: BP 104/59; PULSE 90; RESP 16; TEMP 98.3; O2SAT 96
[2023-11-26 15:00] VITALS: BP 125/67; PULSE 97; RESP 14; TEMP 98.4; O2SAT 96
[2023-11-26 18:00] VITALS: BP 133/67; PULSE 97; RESP 20; TEMP 97.2; O2SAT 97
[2023-11-26] MEDS ORDERED: acetaminophen 325mg/10.15ml oral unit dose solution PO PRN (18:20)
[2023-11-26 19:00] VITALS: RESP 18; O2SAT 95
[2023-11-26] MEDS: apixaban 5mg tablet PO SCH (21:13)
[2023-11-26] MEDS: potassium Cl 40MEQ/1/2NS 520ml 520 ML IV PRN (21:52)
[2023-11-26 22:00] VITALS: BP 109/62; PULSE 95; RESP 22; TEMP 97.6; O2SAT 95
[2023-11-27] VITALS (9 sets, daily range): BP systolic 102–136; BP diastolic 62–75; PULSE 68–98; RESP 14–22; TEMP 97.4–98.2; O2SAT 84–99
[2023-11-27 10:33] LABS: BASOPHILS % (AUTO) 0.2 % (0-1); EOSINOPHILS % (AUTO) 0.2 % (0-6); HEMATOCRIT 32.9 % (35.0-45.0); HEMOGLOBIN 11.3 g/dl (12.0-16.0); LYMPHOCYTES # (AUTO) 0.7 X10'3 (1.1-4.8); LYMPHOCYTES % (AUTO) 9.7 % (21-51); MEAN CORPUSCULAR HGB CONC 34.3 g/dL (33.0-36.5); MEAN CORPUSCULAR VOLUME 84.4 FL (78-98); MONOCYTES # (AUTO) 0.5 X10'3 (0-0.9); MONOCYTES % (AUTO) 6.5 % (2-12); NEUTROPHILS # (AUTO) 6.3 X10'3 (1.8-7.7); NEUTROPHILS % (AUTO) 83.4 % (42-75); PLATELET COUNT 197 X10'3 (140-440); RED CELL DISTRIBUTION WIDTH 14.3 % (11.5-14.5); WHITE BLOOD COUNT 7.6 X10'3 (4.5-11.0)
[2023-11-27 10:50] LABS: ALANINE AMINOTRANSFERASE 15 U/L (12-78); ALBUMIN 2.2 G/DL (3.4-5.0); ALBUMIN/GLOBULIN RATIO 0.8 (1.1-1.5); ALKALINE PHOSPHATASE 71 IU/L (46-116); ANION GAP 12 (8-16); ASPARTATE AMINO TRANSFERASE 24 U/L (10-37); BILIRUBIN,TOTAL 0.4 MG/DL (0.1-1.0); BLOOD UREA NITROGEN 7 MG/DL (7-18); BUN/CREATININE RATIO 10.6 (10.0-20.0); CALCIUM 7.4 MG/DL (8.5-10.1); CHLORIDE 109 MMOL/L (99-107); CREATININE 0.66 MG/DL (0.40-0.90); GLUCOSE 130 MG/DL (70-104); MAGNESIUM 1.8 MG/DL (1.5-2.4); PHOSPHORUS 1.7 MG/DL (2.3-4.5); POTASSIUM 3.4 MMOL/L (3.5-5.1); SODIUM 144 MMOL/L (135-145); TOTAL CARBON DIOXIDE 23.4 MMOL/L (24-32); TOTAL PROTEIN 4.9 G/DL (6.4-8.2); eCRCL 82 ML/MIN; eGFR 90 ML/MIN
[2023-11-27] MEDS: potassium Cl 20 mEq SR tablet PO PRN ×2 (11:26→16:59)
[2023-11-27] MEDS: CefTRIAXone/D5W-Rocephin 1gm 50 ML IV SCH (14:52)
[2023-11-27] MEDS: loperamide 2mg capsule PO PRN (16:59)
[2023-11-28 02:00] VITALS: BP 110/65; PULSE 91; RESP 15; TEMP 98.8; O2SAT 96
[2023-11-28 06:00] VITALS: BP 111/71; PULSE 71; RESP 14; TEMP 98.3; O2SAT 94
[2023-11-28 06:30] VITALS: O2SAT 94
[2023-11-28 07:08] LABS: BASOPHILS % (AUTO) 0.3 % (0-1); EOSINOPHILS % (AUTO) 0.6 % (0-6); HEMATOCRIT 30.4 % (35.0-45.0); HEMOGLOBIN 10.3 g/dl (12.0-16.0); MEAN CORPUSCULAR HEMOGLOBIN 28.7 PG (27.0-31.0); MEAN CORPUSCULAR HGB CONC 33.9 g/dL (33.0-36.5); MEAN CORPUSCULAR VOLUME 84.5 FL (78-98); MEAN PLATELET VOLUME 8.2 FL (7.4-10.4); MONOCYTES # (AUTO) 0.4 X10'3 (0-0.9); MONOCYTES % (AUTO) 6.8 % (2-12); NEUTROPHILS % (AUTO) 76.3 % (42-75); PLATELET COUNT 205 X10'3 (140-440); RED CELL DISTRIBUTION WIDTH 14.5 % (11.5-14.5); WHITE BLOOD COUNT 6.5 X10'3 (4.5-11.0)
[2023-11-28 07:18] LABS: ALANINE AMINOTRANSFERASE 21 U/L (12-78); ALBUMIN 2.5 G/DL (3.4-5.0); ALKALINE PHOSPHATASE 63 IU/L (46-116); ANION GAP -2 (8-16); ASPARTATE AMINO TRANSFERASE 19 U/L (10-37); BILIRUBIN,TOTAL 0.3 MG/DL (0.1-1.0); BLOOD UREA NITROGEN 11 MG/DL (7-18); BUN/CREATININE RATIO 15.5 (10.0-20.0); CHLORIDE 113 MMOL/L (99-107); CREATININE 0.71 MG/DL (0.40-0.90); GLUCOSE 182 MG/DL (70-104); MAGNESIUM 2.1 MG/DL (1.5-2.4); POTASSIUM 3.7 MMOL/L (3.5-5.1); SODIUM 145 MMOL/L (135-145); TOTAL CARBON DIOXIDE 33.9 MMOL/L (24-32); TOTAL PROTEIN 5.1 G/DL (6.4-8.2); eCRCL 76 ML/MIN; eGFR 83 ML/MIN
[2023-11-28 07:35] LABS: CALCIUM 8.2 MG/DL (8.5-10.1)
[2023-11-28 08:39] LABS: HEMOGLOBIN A1C 6.7 % (4.5-6.2)
[2023-11-28] MEDS ORDERED: dextrose 50%-water 50ml dispensing syringe IV PRN ×2 (09:30)
[2023-11-28] MEDS ORDERED: DEXTROSE 15 GM of carb/4 tabs (each vial/BOTTLE has 4 tablets) PO PRN ×2 (09:30)
[2023-11-28] MEDS ORDERED: glucagon, human recombinant 1mg kit SUBCUT PRN (09:30)
[2023-11-28] MEDS ORDERED: insulin Lispro (HumaLOG) vial - multi-dose SQ SCH (09:30)
[2023-11-28 10:00] VITALS: BP 118/68; PULSE 85; RESP 16; TEMP 98; O2SAT 97
[2023-11-28 10:15] VITALS: RESP 16; O2SAT 94
[2023-11-28 14:00] VITALS: BP 111/68; PULSE 89; RESP 16; TEMP 97.9; O2SAT 96
[2023-11-28] MEDS ORDERED: METR-159 PO (15:35)
[2023-11-28] MEDS ORDERED: CEFD300C3 PO (15:35)
[2023-11-28] MEDS ORDERED: insulin glargine (Lantus) pen - multi-dose SQ SCH (21:00)
== END 2023-11-28 17:53 | disposition home or self-care (01) | DRG 720 ==
LOC: ER 23:51 → ED HOLD 11-25 09:29 → PCU 3S 11-26 10:29
PROVIDERS: ADMIT Internal Medicine Critical Care Medicine; ATTEND Internal Medicine Critical Care Medicine
DX: A41.9 Sepsis, unspecified organism (principal); R65.21 Severe sepsis with septic shock; N17.9 Acute kidney failure, unspecified; E11.42 Type 2 diabetes mellitus with diabetic polyneuropathy; I95.9 Hypotension, unspecified; E11.65 Type 2 diabetes mellitus with hyperglycemia; Z20.822 Contact with and (suspected) exposure to COVID-19; A09 Infectious gastroenteritis and colitis, unspecified; I10 Essential (primary) hypertension; E86.1 Hypovolemia; G43.909 Migraine, unspecified, not intractable, without status migrainosus; F41.9 Anxiety disorder, unspecified; J43.9 Emphysema, unspecified; Z86.718 Personal history of other venous thrombosis and embolism; Z79.84 Long term (current) use of oral hypoglycemic drugs; Z79.899 Other long term (current) drug therapy; Z79.01 Long term (current) use of anticoagulants; Z88.1 Allergy status to other antibiotic agents; Z88.0 Allergy status to penicillin; Z88.8 Allergy status to other drugs, medicaments and biological substances
CPT/HCPCS: 36415; 71045; 71250; 74176; 80048; 80053; 80305; 80320; 81003; 82948; 83036; 83605; 83735; 84100; 84145; 84484; 85007; 85025; 85610; 87040; 87045; 87046; 87077; 87186; 87324; 87449; 87502; 87503; 87811; 89055; 93005; 96365; 99285; A6213; A6250; C1758; G0378; J0131; J0696; J0744; J1644; J1815; J2405; J3370; J3480; J3490; J7030; J7040; J7120

== ENCOUNTER 2024-09-13 12:29 | Emergency (ER) | payer MEDICAID ==
[~2024-09-13] VITALS: Ht 170.2 cm; Wt 80.0 kg
[~2024-09-13 12:29] MED LIST changes: +ARIP5TAB12 PO; -ARIP5TAB14 PO; -CEPH-585 PO; -ENOX100S3 SQ; -GLIP10TA11 PO; +GLIP10TA18 PO; -NYST30CR35 TP; +ONDA-243 PO; -ONDA4TAB12 PO; -OXYB5TAB21 PO
[2024-09-13 12:31] VITALS: BP 181/79; PULSE 94; TEMP 97.6; O2SAT 100
[2024-09-13] MEDS ORDERED: IBUP-1985 PO (13:46)
[2024-09-13 13:56] VITALS: RESP 18
[2024-09-13] MEDS: diazepam 5mg tablet PO ONE (13:56)
[2024-09-13] MEDS: ketorolac trometh 15mg/ml vial 15 MG/ML ML IM ONE (13:56)
[2024-09-13] MEDS ORDERED: OXYC-658 PO (21:54)
[2024-09-13] MEDS ORDERED: CYCL-1 PO (21:54)
[2024-09-13] MEDS ORDERED: METH4TAB81 PO (21:55)
== END 2024-09-13 14:10 | disposition home or self-care (01) ==
LOC: ER 12:29
DX: M54.50 Low back pain, unspecified (principal); G89.29 Other chronic pain; F41.9 Anxiety disorder, unspecified; E11.42 Type 2 diabetes mellitus with diabetic polyneuropathy; I10 Essential (primary) hypertension; J43.9 Emphysema, unspecified; Z88.0 Allergy status to penicillin; Z88.5 Allergy status to narcotic agent; Z88.6 Allergy status to analgesic agent; Z88.8 Allergy status to other drugs, medicaments and biological substances; Z79.899 Other long term (current) drug therapy; Z86.718 Personal history of other venous thrombosis and embolism; Z87.19 Personal history of other diseases of the digestive system
CPT/HCPCS: 96372; 99284; J1885

== ENCOUNTER 2024-09-13 19:06 | Emergency (ER) | payer MEDICAID ==
[~2024-09-13] VITALS: Ht 167.6 cm; Wt 90.0 kg
[~2024-09-13 19:06] MED LIST changes: +IBUP-1985 PO
[2024-09-13 19:17] VITALS: TEMP 98
[2024-09-13] MEDS: HYDROmorphone 1 mg/ml syringe IM ONE (20:06)
[2024-09-13] MEDS: diazepam 5mg tablet PO ONE (20:52)
[2024-09-13] MEDS ORDERED: OXYC-658 PO (21:54)
[2024-09-13] MEDS ORDERED: CYCL-1 PO (21:54)
[2024-09-13] MEDS ORDERED: METH4TAB81 PO (21:55)
[2024-09-13 22:08] VITALS: BP 144/79; PULSE 88; RESP 15; O2SAT 99
== END 2024-09-13 22:10 | disposition home or self-care (01) ==
LOC: ER 19:08
DX: M54.16 Radiculopathy, lumbar region (principal); I10 Essential (primary) hypertension; F41.9 Anxiety disorder, unspecified; E11.42 Type 2 diabetes mellitus with diabetic polyneuropathy; G89.29 Other chronic pain; J43.9 Emphysema, unspecified; Z88.0 Allergy status to penicillin; Z88.5 Allergy status to narcotic agent; Z88.6 Allergy status to analgesic agent; Z88.8 Allergy status to other drugs, medicaments and biological substances; Z86.718 Personal history of other venous thrombosis and embolism; Z87.19 Personal history of other diseases of the digestive system
CPT/HCPCS: 96372; 99284; J1171